=== PATIENT | female | born 1965 | race Caucasian/White ===

== ENCOUNTER → 2021-06-28 | Emergency (ER) | payer OTHER ==
[~2021-06-28] MED LIST: Lidocaine 1% w/Epinephrine 1:100K 20 ML VIAL ONE; Oxymetazoline HCl 0.05% (30 ML BOT) ONE; Tranexamic Acid 1,000 MG/10 ML VIAL ONE
== END ==
LOC: MADERS 12:08
DX: R04.0 Epistaxis (principal); I10 Essential (primary) hypertension; E78.5 Hyperlipidemia, unspecified; E03.9 Hypothyroidism, unspecified; E21.3 Hyperparathyroidism, unspecified
CPT/HCPCS: 30903

== ENCOUNTER 2021-11-07 17:45 | Emergency (ER) | payer OTHER, SELFPAY ==
[2021-11-07] MEDS ORDERED: Bupivacaine PF 0.5% 30 ML VIAL ONE (19:13)
[2021-11-07] MEDS ORDERED: Lidocaine 1% (PF) 30 ML VIAL ONE (19:13)
[2021-11-07 20:05] LABS: Alcohol Less than 10 mg/dL (Less than 10); Salicylate Less than 8.0 mg/dL (15.0-30.0)
== END 2021-11-07 20:35 | disposition home or self-care (01) ==
LOC: MADERS 17:45
DX: K02.9 Dental caries, unspecified (principal); E21.3 Hyperparathyroidism, unspecified; E03.9 Hypothyroidism, unspecified; E66.9 Obesity, unspecified; E78.5 Hyperlipidemia, unspecified; I10 Essential (primary) hypertension
CPT/HCPCS: 64400; 80307; J2001; S0020

== ENCOUNTER 2022-04-04 08:58 | Emergency (ER) | payer SELFPAY ==
[2022-04-04] MEDS ORDERED: Ketorolac Tromethamine 30 MG/ML VIAL ONE (10:00)
== END 2022-04-04 10:18 | disposition home or self-care (01) ==
LOC: MADERS 08:58
DX: S20.221A Contusion of right back wall of thorax, initial encounter (principal); E21.3 Hyperparathyroidism, unspecified; E78.00 Pure hypercholesterolemia, unspecified; E66.9 Obesity, unspecified; W01.0XXA Fall on same level from slipping, tripping and stumbling without subsequent striking against object, initial encounter
CPT/HCPCS: 72128; 96372; J1885